=== PATIENT | male | born 1995 | race Caucasian/White ===

== ENCOUNTER 2017-07-28 20:25 | Emergency (ER) | payer BC, OTHER ==
--- NOTE | 2017-07-28 20:48 | EDM.PDOC ---
ED HPI GENERAL MEDICAL PROBLEM - General Chief Complaint: Skin Complaint Stated Complaint: PT HAS SPIDER BITE ON RT ELBOW Time Seen by Provider: 07/28/17 20:47 Source of Information: Reports: Patient History Limitations: Reports: No Limitations - History of Present Illness INITIAL COMMENTS - FREE TEXT/NARRATIVE: HISTORY AND PHYSICAL: History of present illness: [Patient comes to the emergency room complaining of right elbow erythema swelling and tenderness. 48 hours ago he felt a bite sensation to his right elbow while putting on his coat after work. 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 Since that time his arm has become red swollen and tender. He was evaluated at [facility] yesterday and states that he was treated for "tendinitis" with indomethacin and Bactrim DS. Is been taking his medications and has noticed an improvement overall in his symptoms. He has less redness and warmth and swelling to his upper arm and forearm, that he has noticed an increase in swelling and tightness to his right elbow. No fever or chills. No nausea or vomiting. He denies abdominal pain. He's been working normally in spite of having a tight feeling to his elbow. He has a history of MRSA infection to the same extremity.] Review of systems: As per history of present illness and below otherwise all systems reviewed and negative. Past medical history: As per history of present illness and as reviewed below otherwise noncontributory. Surgical history: As per history of present illness and as reviewed below otherwise noncontributory. Social history: No reported history of drug or alcohol abuse. Family history: As per history of present illness and as reviewed below otherwise noncontributory. Physical exam: HEENT: Atraumatic, normocephalic. Extremities: Abscess to right elbow. is hard and nonfluctuant with palpation. Multiple small yellow colored knots are palpated and visualized under the skin. There is no drainage from the area. Very lightly erythematous area surrounding the elbow extending down mid forearm. This is actually improved according to patient's report. Neurovascular intact. Cap refill less than 2 seconds. Neuro: Awake, alert, oriented. Motor and sensory unremarkable throughout. Exam nonfocal. Therapeutics: [Rocephin 1 g IM] Impression: [Abscess, right elbow History of MRSA skin infection] Plan: [Patient is given Rocephin 1 g IM in the ER. Advised to continue Bactrim DS twice a day until all taken. Tylenol alternating with indomethacin twice a day as needed for discomfort. We discussed warm Epsom salts soaks and she is in agreement with. Strict return precautions are reviewed with patient. Was in agreement with today's plan. All questions are answered and concerns are addressed.] Definitive disposition and diagnosis as appropriate pending reevaluation and review of above. right elbow Pain Score (Numeric/FACES): 2 - Related Data Allergies Allergy/AdvReac Type Severity Reaction Status Date / Time No Known Allergies Allergy Verified 07/28/17 20:42 Home Meds: Home Meds Indomethacin 50 mg PO BID 07/28/17 [History] Sulfamethoxazole/Trimethoprim [Bactrim 400-80 MG] 1 each PO BID 07/28/17 [ History] Past Medical History - Past Health History Medical/Surgical History: Denies Medical/Surgical History - Infectious Disease History Infectious Disease History: Reports: Chicken Pox Social & Family History - Family History Family Medical History: Noncontributory - Tobacco Use Smoking Status *Q: Never Smoker Second Hand Smoke Exposure: Yes - Recreational Drug Use Recreational Drug Use: No ED ROS GENERAL - Review of Systems Review Of Systems: ROS reveals no pertinent complaints other than HPI. ED EXAM, SKIN/RASH Exam: See Below Course - Vital Signs Last Recorded V/S: Last Vital Signs Temp 99.1 F 07/28/17 20:43 Pulse 99 07/28/17 20:43 Resp 14 07/28/17 20:43 BP 178/109 H 07/28/17 20:43 Pulse Ox 96 07/28/17 20:43 - Orders/Labs/Meds Meds: Medications Discontinued Medications Generic Name Dose Route Start Last Admin Trade Name Koltonq PRN Reason Stop Dose Admin Ceftriaxone Sodium 1,000 mg/ 4 mls @ 4 mls/sec 07/28/17 21:04 07/28/17 21:12 Lidocaine HCl IM 07/28/17 21:05 4 mls/sec ONETIME ONE Administration Departure - Departure Time of Disposition: 21:20 Disposition: Home, Self-Care 01 Condition: Good Clinical Impression: Abscess - Discharge Information Referrals: PCP,None [Primary Care Provider] - Forms: ED Department Discharge Additional Instructions: The following information is given to patients seen in the emergency department who are being discharged to home. This information is to outline your options for follow-up care. We provide all patients seen in our emergency department with a follow-up referral. The need for follow-up, as well as the timing and circumstances, are variable depending upon the specifics of your emergency department visit. If you don't have a primary care physician on staff, we will provide you with a referral. We always advise you to contact your personal physician following an emergency department visit to inform them of the circumstance of the visit and for follow-up with them and/or the need for any referrals to a consulting specialist. The emergency department will also refer you to a specialist when appropriate. This referral assures that you have the opportunity for follow-up care with a specialist. All of these measure are taken in an effort to provide you with optimal care, which includes your follow-up. Under all circumstances we always encourage you to contact your private physician who remains a resource for coordinating your care. When calling for follow-up care, please make the office aware that this follow-up is from your recent emergency room visit. If for any reason you are refused follow-up, please contact the [facility] emergency department at and asked to speak to the emergency department charge nurse. [facility] [address] [place] [id number] Follow-up with your local primary care provider or at the clinic listed above in 48-72 hours. Take antibiotics and pain reliever as prescribed. Warm Epsom salts soaks as tolerated. Return to ER as needed as discussed.
[2017-07-28] MEDS ORDERED: cefTRIAXone 1,000 MG in Lidocaine 1% 4 ML IM ONE (21:04)
[2017-07-28 21:34] VITALS: BP 150/88
== END 2017-07-28 21:30 | disposition home or self-care (01) ==
LOC: MW.ED 20:25
DX: L02.413 Cutaneous abscess of right upper limb (principal); Z86.14 Personal history of Methicillin resistant Staphylococcus aureus infection; Z77.22 Contact with and (suspected) exposure to environmental tobacco smoke (acute) (chronic)
CPT/HCPCS: 96372; 99283; J0696